=== PATIENT | female | born 1995 | race Caucasian/White ===

== ENCOUNTER 2019-12-24 21:41 | Emergency (ER) | payer OTHER ==
[~2019-12-24] VITALS: Ht 167.6 cm; Wt 54.4 kg
[2019-12-24] MEDS ORDERED: DESIPRAMINE 2525 M1 PO (21:56)
[2019-12-24 22:06] LABS: URINE BILIRUBIN NEGATIVE (Negative); URINE BLOOD 1+ (Negative); URINE CLARITY CLEAR; URINE COLOR YELLOW; URINE GLUCOSE-RANDOM* NEGATIVE (Negative); URINE KETONES NEGATIVE (Negative); URINE LEUKOCYTES-REFLEX NEGATIVE (Negative); URINE NITRITE-REFLEX NEGATIVE (Negative); URINE PROTEIN (DIPSTICK) NEGATIVE (Negative); URINE SPECIFIC GRAVITY 1.015 (1.005-1.035); URINE UROBILINOGEN 0.2 E.U./dl (0.2-1.0)
[2019-12-24 22:18] LABS: CASTS None Seen /LPF (None Seen); CRYSTALS None Seen /LPF (None Seen); SQUAMOUS 0-3 Few /LPF (0-3)
[2019-12-24 22:19] LABS: URINE RBC 0-2 Rare /HPF (0-2); URINE WBC-REFLEX None Seen /HPF (0-5)
[2019-12-24 22:25] LABS: ABSOLUTE NEUTROPHILS 8.4 thou/uL (1.4-8.2); BASOPHILS 0.4 % (0.0-2.0); EOSINOPHILS 1.5 % (0.0-3.0); HEMATOCRIT 42.7 % (37.0-47.0); HEMOGLOBIN 14.7 gm/dL (12.0-15.0); LYMPHOCYTES 26.8 % (24.0-44.0); MCH 32.5 pg (26.0-34.0); MCHC 34.3 g/dL (28.0-37.0); MCV 94.6 fL (80.0-100.0); MONOCYTES 8.3 % (1.0-8.0); PLATELET COUNT 388 thou/uL (150-400); RBC 4.52 mil/uL (4.20-5.00); RDW 12.6 % (10.5-14.5); WBC 13.4 thou/uL (4.0-11.0)
[2019-12-24 22:29] LABS: CALCIUM 9.2 mg/dL (8.5-10.1); CREATININE 0.8 mg/dL (0.6-1.0); POTASSIUM 3.9 mmol/L (3.5-5.1)
[2019-12-24 22:35] LABS: ALBUMIN 4.2 g/dL (3.4-5.0); TOTAL BILIRUBIN 0.4 mg/dL (0.2-1.0); TOTAL PROTEIN 7.6 g/dL (6.4-8.2)
[2019-12-24] MEDS ORDERED: BENTYL 20 MG TA20 M1 PO (23:33)
[2019-12-24] MEDS ORDERED: PREDNISONE 10 M10 M1 PO (23:33)
[2019-12-24 23:40] VITALS: BP 116/65
== END 2019-12-24 23:44 | disposition home or self-care (01) ==
LOC: ER 21:41
PROVIDERS: Emergency Medicine
DX: K92.1 Melena (principal); R10.84 Generalized abdominal pain; Z79.899 Other long term (current) drug therapy

== ENCOUNTER 2020-01-17 20:06 | Emergency (ER) | payer OTHER ==
[~2020-01-17] VITALS: Ht 162.6 cm; Wt 54.4 kg
[~2020-01-17 20:06] MED LIST: BENTYL 20 MG TA20 M1 PO; DESIPRAMINE 2525 M1 PO; PREDNISONE 10 M10 M1 PO
[2020-01-17 20:13] VITALS: BP 144/69
== END 2020-01-17 21:30 | disposition home or self-care (01) ==
LOC: ER 20:06
DX: S61.451A Open bite of right hand, initial encounter (principal); Z53.21 Procedure and treatment not carried out due to patient leaving prior to being seen by health care provider; W54.0XXA Bitten by dog, initial encounter; Y93.89 Activity, other specified; Y92.098 Other place in other non-institutional residence as the place of occurrence of the external cause; Y99.8 Other external cause status

== ENCOUNTER 2021-03-31 14:43 | Inpatient (IN) | payer OTHER ==
[~2021-03-31] VITALS: Ht 167.6 cm; Wt 53.5 kg
[2021-03-31 15:11] VITALS: BP 110/95
[2021-03-31] MEDS ORDERED: DOXYCYCLINE MON50 MG PO (15:16)
[2021-03-31] MEDS ORDERED: MESALAMINE1.2 GM PO (15:17)
[2021-03-31 15:53] LABS: ABSOLUTE NEUTROPHILS 15.6 thou/uL (1.4-8.2); BASOPHILS 0.3 % (0.0-2.0); EOSINOPHILS 0.5 % (0.0-3.0); HEMATOCRIT 33.8 % (37.0-47.0); LYMPHOCYTES 6.2 % (24.0-44.0); MCH 26.4 pg (26.0-34.0); MCHC 32.6 g/dL (28.0-37.0); MCV 81.1 fL (80.0-100.0); MONOCYTES 6.1 % (1.0-8.0); PLATELET COUNT 377 thou/uL (150-400); POLYS 86.9 % (36.0-66.0); RBC 4.16 mil/uL (4.20-5.00); RDW 15.7 % (10.5-14.5)
[2021-03-31 15:57] LABS: URINE BILIRUBIN NEGATIVE (Negative); URINE BLOOD 1+ (Negative); URINE CLARITY CLEAR; URINE COLOR YELLOW; URINE GLUCOSE-RANDOM* NEGATIVE (Negative); URINE KETONES NEGATIVE (Negative); URINE LEUKOCYTES-REFLEX NEGATIVE (Negative); URINE NITRITE-REFLEX NEGATIVE (Negative); URINE PROTEIN (DIPSTICK) NEGATIVE (Negative); URINE SPECIFIC GRAVITY 1.025 (1.005-1.035); URINE UROBILINOGEN 0.2 E.U./dl (0.2-1.0)
[2021-03-31 16:00] LABS: CALCIUM 8.7 mg/dL (8.5-10.1); CREATININE 0.9 mg/dL (0.6-1.0); POTASSIUM 3.3 mmol/L (3.5-5.1)
[2021-03-31 16:05] LABS: ALBUMIN 3.5 g/dL (3.4-5.0); TOTAL BILIRUBIN 0.4 mg/dL (0.2-1.0); TOTAL PROTEIN 6.9 g/dL (6.4-8.2)
[2021-03-31 16:14] LABS: BACTERIA-REFLEX 1-9 Few /HPF (None Seen); SQUAMOUS 0-3 Few /LPF (0-3); URINE RBC 1-2 Rare /HPF (NONE SEEN); URINE WBC-REFLEX 0-5 Rare /HPF (0-5)
[2021-03-31 16:15] LABS: CASTS None Seen /LPF (None Seen); CRYSTALS None Seen /LPF (None Seen)
[2021-03-31 20:47] VITALS: BP 107/56
[2021-03-31 21:03] VITALS: BP 107/56
[2021-03-31 21:37] VITALS: BP 105/68
--- NOTE | 2021-04-01 01:43 | NUR ---
PT IS A/O X4 AND IS UP AD MARC TO THE BR. VSS. MAINTANCE FLUIDS INFUSING AT PRESCRIBED RATE. DENIES C/O PAIN OR DISCOMFORT. ABX GIVEN DIRECTED. ADMISSION IS COMPLETED. PT HAS BEEN EDUCATED ON USE OF BED CONTROLS AND CALL LIGHT.
[2021-04-01 05:52] LABS: HEMOGLOBIN 9.1 gm/dL (12.0-15.0); MCHC 31.4 g/dL (28.0-37.0); MCV 82.7 fL (80.0-100.0); RBC 3.51 mil/uL (4.20-5.00); RDW 15.4 % (10.5-14.5)
[2021-04-01 06:41] LABS: CREATININE 0.9 mg/dL (0.6-1.0); POTASSIUM 3.5 mmol/L (3.5-5.1)
[2021-04-01 07:42] VITALS: BP 113/41
--- NOTE | 2021-04-01 09:10 | NUR ---
A/O X 4. ROOM AIR. AD MARC. 20 G L AC D5 1/2 NS INFUSING @ 100 MLS/HR. BRIGHT RED LOOSE STOOLS. CDIFF PENDING. NO PAIN. AIR IN ROOM IS NOT WORKING AND COMMISSARY ASSISTANT MADE AWARE AND WILL SWITCH ROOMS WHEN ANOTHER PATIENT DISCHARGES ON UNIT. ROOM IS VERY HOT. PATIENTS FACE IS FLUSHED. FAN IS ON AND ICE WATER GIVEN, ICE PACKS OFFERED BUT DECLINED.
--- NOTE | 2021-04-01 13:20 | NUR ---
CM role introduced to pt at bedside. She is a&ox4 and indep prior to admission. She works and lives alone. Sister next door and parents very supportive. She has health ins thru her father. Info provided to [facility] liason and she is faxing admissions a copy of the card. No cm interventions anticipated. Pt hoping to dc home soon as she is feeling better. Will follow along.
[2021-04-01 15:18] VITALS: BP 96/53
[2021-04-01 18:47] VITALS: BP 127/53
[2021-04-01 20:26] VITALS: BP 124/71
--- NOTE | 2021-04-01 20:49 | NUR ---
ASSUMED CARE OF PT AT 1915. PT IS A&OX4. IS ON ROOM AIR. DENIES PAIN IN THE ABD OR ELSEWHERE. IS STABLE. IV FLUIDS & ABX CONTINUED. IS UP ADLIB. IS ABLE TO TURN SELF IN BED. HOURLY ROUNDING CONTINUED. LABS & VITALS REVIEWED. CALL LIGHT WITHIN REACH. WILL CONTINUE TO MONITOR.
[2021-04-02 03:17] VITALS: BP 110/41
[2021-04-02 06:02] LABS: HEMATOCRIT 29.7 % (37.0-47.0); HEMOGLOBIN 9.5 gm/dL (12.0-15.0); MCH 26.2 pg (26.0-34.0); RBC 3.62 mil/uL (4.20-5.00); RDW 15.4 % (10.5-14.5); WBC 13.9 thou/uL (4.0-11.0)
[2021-04-02 06:31] LABS: % SATURATION 5 % (20-39); IRON 12 ug/dL (50-170); TIBC 249 ug/dL (250-450)
--- NOTE | 2021-04-02 20:03 | NUR ---
PT ASSESSED AT START OF SHIFT. HAD TOTAL OF [address] NOVOA IN THIS AFTERNOON AND UPDATED. PT STATES SHE'S FEELING BETTER. NO C/O PAIN AND ABLE TO EAT SOLID FOOD W/O PAIN OR NAUSEA. COLLECTED STOOLS IN HAT IN TOILET AND SMALL AMT OF BLODD W/ SOME BROWN LOOSE STOOL NOTED.
[2021-04-02 20:11] VITALS: BP 132/54
[2021-04-03 05:20] VITALS: BP 124/56
[2021-04-03 05:29] LABS: HEMATOCRIT 26.5 % (37.0-47.0); HEMOGLOBIN 8.4 gm/dL (12.0-15.0); MCH 26.4 pg (26.0-34.0); MCHC 31.8 g/dL (28.0-37.0); RBC 3.19 mil/uL (4.20-5.00); RDW 15.6 % (10.5-14.5); WBC 11.7 thou/uL (4.0-11.0)
--- NOTE | 2021-04-03 07:18 | NUR ---
ASSUMED CARE AT 1930 OF 04/02. PATIENT IS A&OX4, DENIES PAIN OR SHORTNESS OF BREATH. UP AD MARC TO USE BATHROOM. CONTINUES TO HAVE LOOSE STOOLS. LEFT AC IV IN PLACE AND INTACT, D5 & NS RUNNING AT 125CC/HR. CONTINUES ON IV ABX. CALL LIGHT WITHIN REACH, WILL CONTINUE TO MONITOR.
[2021-04-03 07:30] VITALS: BP 114/69
[2021-04-03] MEDS ORDERED: AUGMENTIN 875-1 EACH PO (10:43)
[2021-04-03] MEDS ORDERED: PREDNISONE 20 M20 MG PO (10:45)
[2021-04-03 11:00] VITALS: BP 114/69
--- NOTE | 2021-04-03 11:09 | NUR ---
assumed care of pt at 0700. pt aox4 no acute distress. reports 2 stools overnight. OK for discharge per GI. all questions and concerns addressed with patient. escorted out with staff.
== END 2021-04-03 11:11 | disposition home or self-care (01) | DRG 872 ==
LOC: ER 14:43 → 4S 21:03 → ER 21:03 → 4S 21:06
PROVIDERS: Emergency Medicine; ADMIT Hospitalist; ATTEND Hospitalist
DX: A41.9 Sepsis, unspecified organism (principal); K51.90 Ulcerative colitis, unspecified, without complications; D62 Acute posthemorrhagic anemia; E86.0 Dehydration; Z20.822 Contact with and (suspected) exposure to COVID-19; Z60.2 Problems related to living alone; Z79.899 Other long term (current) drug therapy
CPT/HCPCS: 10100